=== PATIENT | female | born 1945 | race Caucasian/White ===

== ENCOUNTER 2019-05-16 07:25 | Day surgery (SDC) | payer MEDICARE, OTHER ==
[2019-05-16] MEDS ORDERED: LIDOCAINE 2% (SDV) 5 ML INJ (09:51)
[2019-05-16] MEDS ORDERED: PROPOFOL 60 ML (09:51)
[2019-05-16] MEDS ORDERED: hydrALAzine 20 MG INJ IV (11:00)
[2019-05-16] MEDS ORDERED: FENTAnyl 50 MCG/ML VIAL IV (11:00)
[2019-05-16] MEDS ORDERED: LABETALOL HCL 20MG INJ IV (11:00)
[2019-05-16] MEDS ORDERED: ONDANSETRON 4 MG INJ IV (11:00)
[2019-05-16] MEDS ORDERED: EPHEDrine 25 MG/5 ML SYG IV (11:00)
== END 2019-05-16 12:07 | disposition home or self-care (01) ==
LOC: GIL 07:25
DX: D12.5 Benign neoplasm of sigmoid colon (principal); D12.2 Benign neoplasm of ascending colon; K64.8 Other hemorrhoids; K21.9 Gastro-esophageal reflux disease without esophagitis; K29.50 Unspecified chronic gastritis without bleeding; D50.0 Iron deficiency anemia secondary to blood loss (chronic); I10 Essential (primary) hypertension; I25.10 Atherosclerotic heart disease of native coronary artery without angina pectoris; I11.9 Hypertensive heart disease without heart failure; Z79.82 Long term (current) use of aspirin
CPT/HCPCS: 43239; 82962; 88305; 88312